=== PATIENT | male | born 1990 | race Hispanic/Latino ===

== ENCOUNTER → 2025-03-16 | Day surgery (SDC) | payer OTHER ==
[~2025-03-16] MED LIST: DEXAMETHASONE SOD PHOS INJ 4 MG/ML SDV ONE; FENTANYL CITRATE/PF 100MCG/2 ML INJ ONE; LIDOCAINE HCL 2% LOCAL INJ 5 ML SDV VIAL INJ ONE; MIDAZOLAM HCL 2 MG/2 ML VIAL ONE; ONDANSETRON HCL INJ 2MG/ML 2ML 2 MG/ML VIAL ONE; PROPOFOL IV EMULSION 10 MG/ML 20 ML VIAL ONE; SEVOFLURANE INHAL SOLN 250 ML PEN BTL ONE
[2025-03-16] MEDS: CEFTRIAXONE 1 GM VIAL ONE (06:24)
[2025-03-16] MEDS: LACTATED RINGER'S 1,000 ML ONE (06:25)
[2025-03-16 08:40] VITALS: BP 128/76; PULSE 64; RESP 16; O2SAT 100
== END | disposition home or self-care (01) ==
LOC: OR 05:19
PROVIDERS: ATTEND Urology
DX: N20.0 Calculus of kidney (principal); Z87.891 Personal history of nicotine dependence
CPT/HCPCS: 50590; 74018; J0696; J1100; J2003; J2250; J2405; J2704; J3010; J7121

== ENCOUNTER 2025-03-17 02:52 | Inpatient (IN) | payer OTHER ==
[~2025-03-17] VITALS: Ht 167.6 cm; Wt 78.0 kg
[2025-03-17] VITALS (10 sets, daily range): BP systolic 101–119; BP diastolic 62–77; PULSE 57–99; RESP 16–20; TEMP 97.8–99; O2SAT 95–97
[2025-03-17 04:03] LABS: BASOPHILS % 0.1 % (0.0-1.0); EOSINOPHILS % 0.0 % (0.0-6.0); LYMPHOCYTES % 9.0 % (18.0-39.1); MONOCYTES % 8.5 % (4.4-11.3); NEUTROPHILS % 81.9 % (38.7-80.0); RED CELL DISTRIBUTION WIDTH 12.9 % (11.7-14.4)
[2025-03-17] MEDS: ONDANSETRON HCL INJ 2MG/ML 2ML 2 MG/ML VIAL IV STA (04:09)
[2025-03-17] MEDS: Morphine 4mg INJECTION 4 MG/ML INJ IV ONE (04:10)
[2025-03-17 04:16] LABS: EST GLOMERULAR FILTRATION RATE 66.0 ML/MIN (>=60)
[2025-03-17 04:24] LABS: LEUKOCYTE ESTERASE ,URINE NEGATIVE (NEGATIVE); PROTEIN,URINE DIPSTICK NEGATIVE (NEGATIVE); URINE UROBILINOGEN 0.2 mg/dL (0.2 - 1)
[2025-03-17] MEDS ORDERED: IOPAMIDOL 370 MG/ML 100 ML INFUS..BTL INJ ONE (04:37)
[2025-03-17 04:59] LABS: EPITHELIAL CELLS,URINE FEW /LPF
[2025-03-17] MEDS: SODIUM CHLORIDE 0.9% 1000ML 1,000 ML IV SCH (06:26)
[2025-03-17] MEDS: HYDROMORPHONE 1MG/1ML INJ IV PRN (06:46)
[2025-03-17] MEDS ORDERED: ACETAMINOPHEN 325 MG TAB PO PRN (10:45)
[2025-03-17] MEDS ORDERED: HYDRALAZINE HCL 20 MG/ML VIAL IV PRN (10:45)
[2025-03-17] MEDS: SENNA-S TABLET PO SCH (11:48)
[2025-03-17] MEDS: PREGABALIN 50 MG CAP PO SCH (11:48)
[2025-03-17] MEDS: HYDROCODONE/APAP 10MG-325MG TAB PO PRN (23:47)
[2025-03-18 03:11] VITALS: BP 128/66; PULSE 69; RESP 18; TEMP 99; O2SAT 93
[2025-03-18 08:27] LABS: BASOPHILS % 0.3 % (0.0-1.0); EOSINOPHILS % 0.4 % (0.0-6.0); LYMPHOCYTES % 25.5 % (18.0-39.1); MONOCYTES % 10.1 % (4.4-11.3); NEUTROPHILS % 63.3 % (38.7-80.0); RED CELL DISTRIBUTION WIDTH 13.5 % (11.7-14.4)
[2025-03-18 08:47] LABS: EST GLOMERULAR FILTRATION RATE 75.0 ML/MIN (>=60)
[2025-03-18] MEDS: ONDANSETRON HCL INJ 2MG/ML 2ML 2 MG/ML VIAL IV PRN (11:49)
[2025-03-18 11:55] VITALS: BP 135/87; PULSE 75; RESP 18; TEMP 98.2; O2SAT 96
[2025-03-18] MEDS ORDERED: KETOROLAC TROMETHAMINE 30 MG/ML VIAL IV PRN (12:00)
[2025-03-18] MEDS ORDERED: MAALOX/LIDOCAINE/BENADRYL/NYST 30 ML BTL PO PRN (12:00)
[2025-03-18 12:14] VITALS: BP 124/77; PULSE 80; RESP 18; TEMP 98.5; O2SAT 94
[2025-03-18 17:04] VITALS: BP 110/73; PULSE 78; RESP 18; TEMP 98.9; O2SAT 96
[2025-03-18 20:00] VITALS: BP 124/86; PULSE 70; RESP 17; TEMP 98.9; O2SAT 100
[2025-03-19] VITALS (7 sets, daily range): BP systolic 115–166; BP diastolic 71–92; PULSE 55–95; RESP 17–20; TEMP 96.6–99.2; O2SAT 97–100
[2025-03-19 06:23] LABS: BASOPHILS % 0.2 % (0.0-1.0); EOSINOPHILS % 0.8 % (0.0-6.0); LYMPHOCYTES % 23.0 % (18.0-39.1); MONOCYTES % 11.5 % (4.4-11.3); NEUTROPHILS % 64.2 % (38.7-80.0); RED CELL DISTRIBUTION WIDTH 13.1 % (11.7-14.4)
[2025-03-19 06:56] LABS: EST GLOMERULAR FILTRATION RATE 108.0 ML/MIN (>=60)
[2025-03-19] MEDS: SODIUM CHLORIDE 0.9% 1000ML 1,000 ML IV SCH (11:46)
[2025-03-20 08:31] VITALS: BP 113/67; PULSE 67; RESP 18; TEMP 98; O2SAT 99
== END 2025-03-20 11:30 | disposition home or self-care (01) | DRG 694 ==
LOC: ER 03:36 → ERHOLD 06:14 → MED/SURG2 09:00
PROVIDERS: ADMIT Internal Medicine; ATTEND Internal Medicine
DX: N13.1 Hydronephrosis with ureteral stricture, not elsewhere classified (principal); R31.9 Hematuria, unspecified; N23 Unspecified renal colic; N17.9 Acute kidney failure, unspecified; E86.0 Dehydration; E87.70 Fluid overload, unspecified
CPT/HCPCS: 36415; 71046; 74018; 74177; 80048; 80053; 81001; 85025; 87086; 99284; J0692; J0696; J1171; J2270; J2405; J2470; J7030; Q9967